=== PATIENT | male | born 1950 | race Caucasian/White ===

== ENCOUNTER 2016-11-24 07:16 | Day surgery (SDC) | payer MEDICARE, BC ==
[~2016-11-24 07:16] MED LIST: Albuterol/Ipratropium 3.0-0.5 MG/3 ML Neb Soln NEB PRN; Lactated Ringers 1,000 ML IV SCH; Lidocaine 1% 4 ML ONE; Lidocaine 1%/Sod Bicarbonate in NS 8.4% 1 ML Syringe PRN; Midazolam 1 MG/ML 2 ML SDV ONE; Propofol 200 MG/20 ML SDV ONE; Sodium Chloride 0.9% 10 ML Syringe FLUSH PRN; fentaNYL 100 MCG/2 ML SDV ONE
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
[2016-11-24] MEDS ORDERED: Propofol 200 MG/20 ML SDV ONE ×2 (09:23→10:04)
--- NOTE | 2016-11-24 10:00 | PCM.OPNOTE ---
- General Post-Op/Procedure Note Date of Surgery/Procedure: 11/24/16 Operative Procedure(s): colonoscopy to cecum polypectomy times three Findings: diverticulosis and polyps times three d Pre Op Diagnosis: screening colonoscopy Post-Op Diagnosis: Same Anesthesia Technique: MAC Primary Surgeon: Rojas Montejo EBL in mLs: 0 Complications: None Condition: Good
--- NOTE | 2016-11-24 10:04 | PCM48HPAN ---
Post Anesthesia Note - EVALUATION WITHIN 48HRS OF ANESTHETIC Vital Signs in Normal Range: Yes Patient Participated in Evaluation: Yes Respiratory Function Stable: Yes Airway Patent: Yes Cardiovascular Function Stable: Yes Hydration Status Stable: Yes Pain Control Satisfactory: Yes Nausea and Vomiting Control Satisfactory: Yes Mental Status Recovered: Yes
[2016-11-24 11:34] VITALS: BP 148/70
--- NOTE | 2016-11-25 08:34 | OR ---
DATE OF OPERATION: 11/24/2016 SURGEON: Rojas Montejo MD PREOPERATIVE DIAGNOSIS: Screening colonoscopy POSTOPERATIVE DIAGNOSIS: Screening colonoscopy. OPERATION PERFORMED: Colonoscopy of cecum with removal of polyps x3. FINDINGS: Sigmoid diverticulosis and a diminutive polyp in the ascending and sigmoid colon, and a flat villous-like polyp in the anterior rectum 7 cm from the anal verge measuring about 2 cm in diameter. ANESTHESIA: Done under IV sedation. DESCRIPTION OF PROCEDURE: The patient was taken to the operating room, placed in a supine position, connected to monitoring equipment, given IV sedation. The patient in the left lateral position, perianal area was inspected, showed some external hemorrhoids. Rectal exam showed good sphincter tone. A video Olympus colonoscope was introduced into the rectum and threaded up without problem to the cecum, where the ileocecal valve and appendicular orifice was noted. Prep was excellent. Hairfield cleansing score grade B and the scope was slowly withdrawn showing the cecum, ascending colon, transverse colon, descending colon, sigmoid colon, and rectum. Retroflexed view was done. Diminutive polyp was noted in the descending colon. This was removed by cautery snare and retrieved. A 2nd polyp was noted in the sigmoid colon. This was removed in the same way completely by cautery snare. A 3rd polyp was noted in the rectum on the anterior surface within 7 cm in the anal verge. This was handled by 1st injecting the base with saline and removing the polyp in a morselized technique. This was a very villous polyp. This was removed and the edges cauterized and a clip placed in 1 area. The various morsels were then aspirated and sent to Pathology as an aggregate. The patient tolerated the procedure, sent to recovery room in a stable condition and will be followed up in the clinic and we will withhold his Plavix until seen in the clinic. ESTIMATED BLOOD LOSS: MMODAL /[id number]
== END 2016-11-24 11:10 | disposition home or self-care (01) ==
LOC: JD.SDS 07:16
PROVIDERS: ATTEND Surgery
DX: Z12.11 Encounter for screening for malignant neoplasm of colon (principal); D12.4 Benign neoplasm of descending colon; D12.5 Benign neoplasm of sigmoid colon; D12.8 Benign neoplasm of rectum; K57.30 Diverticulosis of large intestine without perforation or abscess without bleeding; N40.0 Benign prostatic hyperplasia without lower urinary tract symptoms; I10 Essential (primary) hypertension; I73.9 Peripheral vascular disease, unspecified; E78.00 Pure hypercholesterolemia, unspecified; J44.9 Chronic obstructive pulmonary disease, unspecified; F17.210 Nicotine dependence, cigarettes, uncomplicated; Z85.46 Personal history of malignant neoplasm of prostate; Z90.79 Acquired absence of other genital organ(s); Z98.890 Other specified postprocedural states; Z79.02 Long term (current) use of antithrombotics/antiplatelets; Z79.82 Long term (current) use of aspirin; Z79.899 Other long term (current) drug therapy
CPT/HCPCS: 45385; 45388; J2250; J3010; J7120; 00810; 88305; J2704

== ENCOUNTER → 2017-08-20 | Day surgery (SDC) | payer MEDICARE, BC ==
[2017-08-20] MEDS: Polymyxin B/Trimethoprim 10 ML Bottle EYERT SCH ×4 (10:03→11:48)
[2017-08-20] MEDS: Brimonidine 0.2% Ophth Soln 5 ML Bottle EYERT SCH ×4 (10:11→11:48)
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
[2017-08-20] MEDS: Phenylephrine 2.5% Ophth Soln 2 ML Bot EYERT SCH ×6 (10:15→11:28)
[2017-08-20] MEDS: Tropicamide 1% Ophth Soln 3 ML Bottle EYERT SCH ×4 (10:20→11:04)
[2017-08-20] MEDS: Tetracaine HCl/PF 0.5% 4 ML Bottle EYERT SCH ×3 (10:45→11:35)
[2017-08-20] MEDS: Lidocaine 1% PF 2 ML SDV INJECT SCH ×2 (10:45→11:35)
[2017-08-20] MEDS: Cefuroxime 10 MG/ML SYRINGE EYERT SCH ×2 (10:45→11:45)
[2017-08-20] MEDS: Pilocarpine 4% Ophth Soln 15 ML Bot EYERT SCH ×2 (10:46→11:48)
--- NOTE | 2017-08-20 11:54 | PCM48HPAN ---
Post Anesthesia Note - EVALUATION WITHIN 48HRS OF ANESTHETIC Vital Signs in Normal Range: Yes Patient Participated in Evaluation: Yes Respiratory Function Stable: Yes Airway Patent: Yes Cardiovascular Function Stable: Yes Hydration Status Stable: Yes Pain Control Satisfactory: Yes Nausea and Vomiting Control Satisfactory: Yes Mental Status Recovered: Yes Pulse Rate: 57 SaO2: 99 Resp Rate: 16 Temperature: 37 C Blood Pressure: 100/59
[2017-08-20 11:59] VITALS: BP 115/51
== END | disposition home or self-care (01) ==
LOC: JD.SDS 07:00
PROVIDERS: ATTEND Ophthalmology
DX: H25.813 Combined forms of age-related cataract, bilateral (principal); H21.81 Floppy iris syndrome; H21.41 Pupillary membranes, right eye; I10 Essential (primary) hypertension; J44.9 Chronic obstructive pulmonary disease, unspecified; F17.200 Nicotine dependence, unspecified, uncomplicated; E78.00 Pure hypercholesterolemia, unspecified; H02.831 Dermatochalasis of right upper eyelid; H16.223 Keratoconjunctivitis sicca, not specified as Sjogren's, bilateral; H31.10 Unspecified choroidal degeneration; Z79.82 Long term (current) use of aspirin; Z79.899 Other long term (current) drug therapy
CPT/HCPCS: 66982; C1780; J0697; J2001; A9270-GY

== ENCOUNTER 2017-09-17 07:07 | Day surgery (SDC) | payer MEDICARE, BC ==
[2017-09-17] MEDS: Polymyxin B/Trimethoprim 10 ML Bottle EYELF SCH ×4 (07:20→09:25)
[2017-09-17] MEDS: Brimonidine 0.2% Ophth Soln 5 ML Bottle EYELF SCH ×4 (07:23→09:25)
[2017-09-17] MEDS: Phenylephrine 2.5% Ophth Soln 2 ML Bot EYELF SCH ×10 (07:29→08:46)
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
[2017-09-17] MEDS: Tropicamide 1% Ophth Soln 15 ML Bottle EYELF SCH ×4 (07:34→08:12)
[2017-09-17] MEDS: Lidocaine 1% PF 2 ML SDV INJECT SCH ×2 (08:19→08:52)
[2017-09-17] MEDS: Cefuroxime 10 MG/ML SYRINGE EYELF SCH ×2 (08:20→09:24)
[2017-09-17] MEDS: Pilocarpine 4% Ophth Soln 15 ML Bot EYELF SCH ×2 (08:21→09:25)
[2017-09-17] MEDS: Tetracaine HCl/PF 0.5% 4 ML Bottle EYELF SCH ×5 (08:23→08:52)
--- NOTE | 2017-09-17 09:26 | PCM48HPAN ---
Post Anesthesia Note - EVALUATION WITHIN 48HRS OF ANESTHETIC Vital Signs in Normal Range: Yes Patient Participated in Evaluation: Yes Respiratory Function Stable: Yes Airway Patent: Yes Cardiovascular Function Stable: Yes Hydration Status Stable: Yes Pain Control Satisfactory: Yes Nausea and Vomiting Control Satisfactory: Yes Mental Status Recovered: Yes Pulse Rate: 66 SaO2: 100 Resp Rate: 16 Temperature: 36.2 C Blood Pressure: 122/60
[2017-09-17 09:40] VITALS: BP 125/54
== END 2017-09-17 09:37 | disposition home or self-care (01) ==
LOC: JD.SDS 07:07
PROVIDERS: ATTEND Ophthalmology
DX: H25.812 Combined forms of age-related cataract, left eye (principal); H43.02 Vitreous prolapse, left eye; I10 Essential (primary) hypertension; J44.9 Chronic obstructive pulmonary disease, unspecified; F17.200 Nicotine dependence, unspecified, uncomplicated; E78.00 Pure hypercholesterolemia, unspecified; H02.831 Dermatochalasis of right upper eyelid; Z98.41 Cataract extraction status, right eye; Z79.82 Long term (current) use of aspirin; Z79.899 Other long term (current) drug therapy; Z96.1 Presence of intraocular lens
CPT/HCPCS: 66984; 67005; C1780; J0697; A9270-GY; J2001

== ENCOUNTER 2017-12-03 06:54 | Day surgery (SDC) | payer MEDICARE, BC ==
[~2017-12-03 06:54] MED LIST changes: -Albuterol/Ipratropium 3.0-0.5 MG/3 ML Neb Soln NEB PRN; -Lidocaine 1% 4 ML ONE; +Lidocaine 1%/Sod Bicarbonate in NS 8.4% 1 ML Syringe IDERM PRN; -Lidocaine 1%/Sod Bicarbonate in NS 8.4% 1 ML Syringe PRN; -Midazolam 1 MG/ML 2 ML SDV ONE; -Propofol 200 MG/20 ML SDV ONE; -fentaNYL 100 MCG/2 ML SDV ONE
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
[2017-12-03] MEDS ORDERED: Lidocaine 1% 4 ML ONE (07:59)
[2017-12-03] MEDS ORDERED: Propofol 200 MG/20 ML SDV ONE ×2 (07:59→08:25)
[2017-12-03] MEDS ORDERED: fentaNYL 100 MCG/2 ML SDV ONE (07:59)
--- NOTE | 2017-12-03 09:03 | PCM48HPAN ---
Post Anesthesia Note - EVALUATION WITHIN 48HRS OF ANESTHETIC Vital Signs in Normal Range: Yes Patient Participated in Evaluation: Yes Respiratory Function Stable: Yes Airway Patent: Yes Cardiovascular Function Stable: Yes Hydration Status Stable: Yes Pain Control Satisfactory: Yes Nausea and Vomiting Control Satisfactory: Yes Mental Status Recovered: Yes Pulse Rate: 61 Resp Rate: 18 Temperature: 36.3 C Blood Pressure: 121/52 - COMMENTS/OBSERVATIONS Free Text/Narrative:: no anesthesia complications noted
--- NOTE | 2017-12-03 09:13 | PCM.OPNOTE ---
- General Post-Op/Procedure Note Date of Surgery/Procedure: 12/03/17 Operative Procedure(s): colonoscopy to hepatic flexure with polypectomy Pre Op Diagnosis: hx of colonic polyps Post-Op Diagnosis: Same Anesthesia Technique: MAC Primary Surgeon: Rojas Montejo EBL in mLs: 0 Complications: None Condition: Good
[2017-12-03 09:54] VITALS: BP 132/85
--- NOTE | 2017-12-04 09:32 | OR ---
DATE OF OPERATION: 12/03/2017 SURGEON: Rojas Montejo MD PREOPERATIVE DIAGNOSIS: History of colonic polyps. POSTOPERATIVE DIAGNOSIS: History of colonic polyps. OPERATION PERFORMED: Colonoscopy, hepatic flexure, with removal of a polyp at the descending and sigmoid colon area, which was less than 1 cm, removed completely by cautery snare. FINDINGS: A subcentimeter polyp at the junction of the ascending colon and sigmoid colon and 2 moderate sigmoid diverticulosis. Large loop deformed and would not safely advance the scope beyond the hepatic flexure. Prep was excellent. [place] cleansing score grade A. Recommendation is followup colonoscopy as per pathology report. ANESTHESIA: Done under IV sedation. DESCRIPTION OF PROCEDURE: The patient was taken to the endoscopy room, connected to monitoring equipment, given IV sedation, and then placed in the left lateral position. Perianal area was unremarkable. Rectal exam showed good sphincter tone. A video Olympus colonoscope was then introduced into the rectum and threaded up to the hepatic flexure. Because of a loop, I was unable to advance further. Prep was excellent. [place] cleansing score grade A, and the scope was slowly withdrawn showing the polyp as described above, which was lassoed with cautery snare, removed, and retrieved. It was completely removed. The transverse colon, descending colon, sigmoid colon, and rectum were otherwise unremarkable beside diverticulosis and the polyp. The patient tolerated the procedure, sent to recovery room in a stable condition, will be followed up in the clinic, and the polyp sent to pathology in a labeled container. ESTIMATED BLOOD LOSS: MMODAL /[id number]
== END 2017-12-03 10:00 | disposition home or self-care (01) ==
LOC: JD.SDS 06:54 → MERGE 08:45 → JD.SDS 10:00
PROVIDERS: ATTEND Surgery
DX: Z12.11 Encounter for screening for malignant neoplasm of colon (principal); D12.4 Benign neoplasm of descending colon; I10 Essential (primary) hypertension; J44.9 Chronic obstructive pulmonary disease, unspecified; F17.210 Nicotine dependence, cigarettes, uncomplicated; K21.9 Gastro-esophageal reflux disease without esophagitis; I73.9 Peripheral vascular disease, unspecified; E78.00 Pure hypercholesterolemia, unspecified; Z86.010 Personal history of colon polyps; Z79.51 Long term (current) use of inhaled steroids; Z79.82 Long term (current) use of aspirin; Z79.899 Other long term (current) drug therapy
CPT/HCPCS: 45385; J2704; J3010; J7120; 00811; J2001

== ENCOUNTER 2018-05-10 08:41 | Emergency (ER) | payer MEDICARE, BC ==
[2018-05-10 08:50] VITALS: BP 150/72
[2018-05-10] MEDS ORDERED: Sodium Chloride 0.9% 10 ML Syringe FLUSH PRN (09:06)
--- NOTE | 2018-05-10 09:58 | CR ---
Chest: Portable view of the chest was obtained. Comparison: No prior chest x-ray, prior chest CT of 02/15/15. Findings: Heart size and mediastinum are normal. Lungs are clear but hyperinflated. Bony structures are grossly intact. Impression: 1. Emphysematous change. Nothing acute is seen. Diagnostic code #2
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
== END 2018-05-10 10:35 | disposition home or self-care (01) ==
LOC: JD.ED 08:41
DX: R07.89 Other chest pain (principal); E78.00 Pure hypercholesterolemia, unspecified; F17.210 Nicotine dependence, cigarettes, uncomplicated; Z79.899 Other long term (current) drug therapy
CPT/HCPCS: 36415; 71045; 71045-26; 80053; 84484; 85025; 93005; 93010; 99284; 99285-25

== ENCOUNTER 2018-05-23 14:59 | Emergency (ER) | payer MEDICARE, BC ==
[2018-05-23 15:14] VITALS: BP 126/109
[2018-05-23] MEDS ORDERED: Albuterol/Ipratropium 3.0-0.5 MG/3 ML Neb Soln NEB ONE (15:14)
[2018-05-23] MEDS ORDERED: Sodium Chloride 0.9% 1,000 ML IV ONE ×2 (15:32→17:14)
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
--- NOTE | 2018-05-23 16:57 | US ---
Limited abdominal ultrasound: Multiple real-time images were obtained of the abdomen within the right upper quadrant. Liver shows no focal abnormality. Gallbladder contains no calcified gallstones. Pancreas is within normal limits. Right kidney shows no hydronephrosis or mass. Inferior vena cava is patent. Portal vein shows normal hepatopedal flow. Impression: 1. No abnormality is seen on right upper quadrant abdominal ultrasound. Diagnostic code #1
--- NOTE | 2018-05-24 06:32 | CR ---
Chest: Portable view of the chest was obtained. Comparison: Prior chest x-ray of 05/10/18. Heart size and mediastinum are within normal limits for age. Lungs are clear but hyperinflated. Bony structures are grossly intact. Nodule is noted within the right mid to lower lung compatible with nipple density. Impression: 1. Emphysematous change. Nothing acute is seen on frontal chest x-ray. Diagnostic code #2
== END 2018-05-23 18:34 | disposition home or self-care (01) ==
LOC: JD.ED 14:59
DX: R07.89 Other chest pain (principal); B02.8 Zoster with other complications; E86.0 Dehydration; N28.9 Disorder of kidney and ureter, unspecified; E78.00 Pure hypercholesterolemia, unspecified; I10 Essential (primary) hypertension; F17.210 Nicotine dependence, cigarettes, uncomplicated; Z79.82 Long term (current) use of aspirin; Z95.5 Presence of coronary angioplasty implant and graft; Z79.899 Other long term (current) drug therapy
CPT/HCPCS: 36415; 71045; 76705; 80053; 83690; 84484; 85025; 85379; 93005; 94640; 96360; 96361; 99285; J7040; 93010; J7620-GY

== ENCOUNTER → 2020-03-22 | Day surgery (SDC) | payer MEDICARE, BC ==
[~2020-03-22] MED LIST changes: -Lactated Ringers 1,000 ML IV SCH; -Lidocaine 1%/Sod Bicarbonate in NS 8.4% 1 ML Syringe IDERM PRN; +Phenylephrine 2.5% Ophth Soln 15 ML Bot EYERT SCH; -Sodium Chloride 0.9% 10 ML Syringe FLUSH PRN; +Tropicamide 1% Ophth Soln 15 ML Bottle EYERT SCH
[2020-03-22] MEDS: Brimonidine 0.2% Ophth Soln 5 ML Bottle EYERT SCH ×2 (11:54→12:44)
[2020-03-22 12:50] VITALS: BP 138/66; PULSE 76
== END ==
LOC: JD.SDS 11:46
PROVIDERS: ATTEND Ophthalmology
DX: H26.491 Other secondary cataract, right eye (principal); H40.053 Ocular hypertension, bilateral; H35.363 Drusen (degenerative) of macula, bilateral; H35.3131 Nonexudative age-related macular degeneration, bilateral, early dry stage; H35.373 Puckering of macula, bilateral; Z79.899 Other long term (current) drug therapy; F17.200 Nicotine dependence, unspecified, uncomplicated; E78.00 Pure hypercholesterolemia, unspecified; I10 Essential (primary) hypertension; Z96.1 Presence of intraocular lens

== ENCOUNTER 2020-06-13 06:54 | Day surgery (SDC) | payer MEDICARE, BC ==
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
[~2020-06-13 06:54] MED LIST changes: +Albuterol 0.083% 2.5 MG/3 ML Neb Soln NEB PRN; +Lactated Ringers 1,000 ML IV SCH; +Lidocaine 1%/Sod Bicarbonate in NS 8.4% 1 ML Syringe IDERM PRN; -Phenylephrine 2.5% Ophth Soln 15 ML Bot EYERT SCH; +Sodium Chloride 0.9% 10 ML Syringe FLUSH PRN; -Tropicamide 1% Ophth Soln 15 ML Bottle EYERT SCH
[2020-06-13] MEDS ORDERED: fentaNYL 100 MCG/2 ML SDV ONE (06:56)
[2020-06-13] MEDS ORDERED: Propofol 200 MG/20 ML SDV ONE (06:56)
[2020-06-13] MEDS ORDERED: Lidocaine 1% 4 ML ONE (06:56)
--- NOTE | 2020-06-13 08:42 | PCM48HPAN ---
Post Anesthesia Note - EVALUATION WITHIN 48HRS OF ANESTHETIC Vital Signs in Normal Range: Yes Patient Participated in Evaluation: Yes Respiratory Function Stable: Yes Airway Patent: Yes Cardiovascular Function Stable: Yes Hydration Status Stable: Yes Pain Control Satisfactory: Yes Nausea and Vomiting Control Satisfactory: Yes Mental Status Recovered: Yes Vital Signs: Last Vital Signs Temp Pulse Resp BP Pulse Ox 98 06/13/20 07:35
--- NOTE | 2020-06-13 08:44 | PCM.OPNOTE ---
- General Post-Op/Procedure Note Date of Surgery/Procedure: 06/13/20 Operative Procedure(s): EGD Findings: 1. Esophagitis 2. Hiatal hernia 3. Irregular GE junction 4. Gastritis 5. Duodenitis 6. Duodenal polyps Pre Op Diagnosis: Dysphagia Post-Op Diagnosis: same Anesthesia Technique: MAC Primary Surgeon: Vera Romero Anesthesia Provider: Yoana Sanderson Pathology: 1. Upper esophageal biopsies 2. GE junction biopsies 3. Gastric antrum 4. Duodenal biopsies Fluid Replacement, Intraop: 300 Output, Urine Amount: 0 EBL in mLs: 0 Complications: none apparent Condition: Good
--- NOTE | 2020-06-13 08:46 | PCM.PRNOTE ---
- Free Text/Narrative Note: Operative Report Date of procedure: June 13, 2020 Preoperative diagnosis: Dysphagia Postoperative diagnosis: Same Surgeon: Vera Romero M.D. Procedure: EGD Anesthesia: MAC Chuck Tender: Yoana Sanderson CRNA IV fluids: 300mL Estimated blood loss: 0 mL Findings: 1. Esophagitis 2. Hiatal hernia 3. Irregular GE junction 4. Gastritis 5. Duodenitis 6. Duodenal polyps Specimens: 1. Upper esophageal biopsies 2. GE junction biopsies 3. Gastric antrum 4. Duodenal biopsies Indication: The patient is a 70 -year-old gentleman who presented with complaints of dysphagia and neck tenderness. He underwent a preprocedure CT scan of the head and neck as well as an esophagram. Findings there showed glot tic thickening as well as prominence of the cricopharyngeal muscle.. The patient was consented for an EGD. Risk of bleeding and perforation were discussed. The patient's consent was obtained. Description of the procedure: The patient was taken to the endoscopy suite and placed on hemodynamic monitoring. The nurse hoop expander induced MAC anesthesia. A bite block was placed. The patient was positioned in the left lateral decubitus position. A timeout was performed. The endoscope was gently placed into the mouth to the back of the pharynx and introduced into the esophagus. The scope was gently advanced under direct visualization down to the level of the lower esophageal sphincter. The stomach was then entered. Normal rugal folds were noted. There were findings of edema and adherent blood in the distal stomach and antrum consistent with gastritis. The scope was advanced into the antrum; the pylorus was then entered and the first and second portion of the duodenum was inspected. We did note some inflammation and flattened villi consistent with duodenitis. Biopsies were taken with a cold biopsy forceps. There were also polyps noted in the proximal duodenal bulb consistent with peptic duodenitis. Biopsies were taken of this polypoid tissue using a cold biopsy forceps. The scope was withdrawn to the antrum and biopsies taken in this area using cold biopsy forceps for histology and H. pylori testing. The scope was then retroflexed in the cardia and fundus were investigated. There was evidence of a small sliding hiatal hernia. The GE junction was irregular and biopsies were taken in 4 quadrants using a cold biopsy forceps. The scope was then withdrawn and inspecting the esophagus during withdrawal. At approximately 20 cm in the upper esophagus there was adherent slough consistent with fibrinous exudate. This was dislodged using a biopsy forceps, but the underlying mucosa appeared roughened and abnormal. Biopsies were taken of this patch using a cold biopsy forceps. No other abnormalities were noted. The procedure was terminated. The patient tolerated the procedure well without any evidence of complications. Vera Romero MD General Surgery
[2020-06-13 09:26] VITALS: BP 150/65; PULSE 68
== END 2020-06-13 09:24 | disposition home or self-care (01) ==
LOC: JD.SDS 06:54
PROVIDERS: ATTEND Surgery
DX: K20.90 Esophagitis, unspecified without bleeding (principal); K44.9 Diaphragmatic hernia without obstruction or gangrene; J44.9 Chronic obstructive pulmonary disease, unspecified; E78.00 Pure hypercholesterolemia, unspecified; I10 Essential (primary) hypertension; F17.210 Nicotine dependence, cigarettes, uncomplicated; Z79.82 Long term (current) use of aspirin; Z79.899 Other long term (current) drug therapy; Z85.46 Personal history of malignant neoplasm of prostate; Z86.010 Personal history of colon polyps
CPT/HCPCS: 43239; 88305; 94640; J2704; J3010; J7120; 00731; 99100

== ENCOUNTER 2021-01-02 07:54 | Day surgery (SDC) | payer MEDICARE, BC ==
[~2021-01-02 07:54] MED LIST changes: -Albuterol 0.083% 2.5 MG/3 ML Neb Soln NEB PRN
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
[2021-01-02] MEDS ORDERED: fentaNYL 100 MCG/2 ML SDV ONE (10:23)
[2021-01-02] MEDS ORDERED: Propofol 200 MG/20 ML SDV ONE ×3 (10:23→10:58)
[2021-01-02] MEDS ORDERED: Lidocaine 1% 4 ML ONE (10:24)
--- NOTE | 2021-01-02 11:30 | PCM48HPAN ---
Post Anesthesia Note - EVALUATION WITHIN 48HRS OF ANESTHETIC Vital Signs in Normal Range: Yes Patient Participated in Evaluation: Yes Respiratory Function Stable: Yes Airway Patent: Yes Cardiovascular Function Stable: Yes Hydration Status Stable: Yes Pain Control Satisfactory: Yes Nausea and Vomiting Control Satisfactory: Yes Mental Status Recovered: Yes Vital Signs: Last Vital Signs Temp 36.6 C 01/02/21 08:00 Pulse 75 01/02/21 08:00 Resp 16 01/02/21 08:00 BP 136/62 01/02/21 08:00 Pulse Ox 100 01/02/21 08:00 - COMMENTS/OBSERVATIONS Free Text/Narrative:: no anesthesia complications noted
--- NOTE | 2021-01-02 11:31 | PCM.OPNOTE ---
- General Post-Op/Procedure Note Date of Surgery/Procedure: 01/02/21 Operative Procedure(s): colonoscopy Findings: 1. Diverticulosis 2. Colon polyps 3. Internal hemorrhoids Pre Op Diagnosis: history of colon polyps Post-Op Diagnosis: same Anesthesia Technique: HUMERA Primary Surgeon: Vera Romero Anesthesia Provider: Miles Edouard Pathology: 1. Sigmoid colon polyp (removed with hot snare) 2. Sigmoid colon polyps x3 3. Transverse colon polyps x2 4. Biopsy of splenic flexure 5. Descending colon polyp 6. Rectal polyps x5 Fluid Replacement, Intraop: 700 Output, Urine Amount: 0 EBL in mLs: 0 Complications: none apparent Condition: Good
--- NOTE | 2021-01-02 11:34 | PCM.PRNOTE ---
- Free Text/Narrative Note: Operative Report Date of Surgery/Procedure: January 02, 2021 Operative Procedure: Colonoscopy to cecum with biopsy and polypectomy Pre Op Diagnosis: history of colon polyp Post-Op Diagnosis: same Surgeon: Vera Romero Anesthesia Technique: MAC Anesthesia Provider: Miles Edouard CRNA IV Fluid Replacement, Intraop: 700cc Output, Urine Amount: 0cc EBL : 0cc Findings: 1. Diverticulosis 2. Colon polyps 3. Internal hemorrhoids Specimens: 1. Sigmoid colon polyp (removed with hot snare) 2. Sigmoid colon polyps x3 3. Transverse colon polyps x2 4. Biopsy of splenic flexure 5. Descending colon polyp 6. Rectal polyps x5 Indication: The patient is a 70 year-old gentleman who presented to the outpatient clinic requesting colorectal cancer surveillance. The patient has a history of colon polyps. We discussed the procedure of a screening colonoscopy including the polypectomy and biopsy. Risks of bleeding and perforation were discussed, the patient understood and wished to proceed. Written and consent was obtained. Description of the procedure: The patient was brought to the endoscopy suite and placed in the left lateral decubitus position. Appropriate monitors were applied. The patient was given MAC anesthesia. An anorectal examination was performed, revealing no external abnormality The scope was placed into the rectum and advanced to cecum with moderate difficulty requiring abdominal pressure and change in position to supine. The patients cecum was entered, and the ileocecal valve and appendiceal orifice were identified and normal. At this point, the scope was withdrawn, paying careful attention to the mucosa. The patient had good bowel prep, allowing for visualization of 95% of the mucosa. Two flat 2-3mm transverse colon polyps were noted and removed with a jumbo cold biopsy forceps. There was some abnormal tissue noted in the splenic flexure and was biopsied with a jumbo cold biopsy forceps. A descending colon flat polyp 3mm and removed with a jumbo cold biopsy forceps. A 4mm semipedunculated polyp was removed with a hot snare from the sigmoid colon. A 5mm flat polyp and two 3-4mm flat polyps were removed from the sigmoid colon with a jumbo cold biopsy forceps. In the rectum, 5 polyps ranging from 3-5 mm that were flat and semi-pedunculated were removed with a jumbo cold biopsy forceps. Scattered small and large diverticula were seen in the descending and sigmoid colon. In the rectum, the scope was retroflexed and no abnormalities were noted, except for some more prominent internal hemorrhoidal tissue. The scope was placed back in the lumen and the excess air was aspirated. The patient tolerated the procedure well. Complications: none apparent Condition: Good, transported to PACU in stable condition Vera Romero MD General Surgery
[2021-01-02 12:08] VITALS: BP 139/60; PULSE 70
== END 2021-01-02 12:25 | disposition home or self-care (01) ==
LOC: JD.SDS 07:54
PROVIDERS: ATTEND Surgery
DX: D12.4 Benign neoplasm of descending colon (principal); D12.5 Benign neoplasm of sigmoid colon; D12.8 Benign neoplasm of rectum; K57.30 Diverticulosis of large intestine without perforation or abscess without bleeding; K64.8 Other hemorrhoids; K59.00 Constipation, unspecified; J44.9 Chronic obstructive pulmonary disease, unspecified; F17.210 Nicotine dependence, cigarettes, uncomplicated; Z79.82 Long term (current) use of aspirin
CPT/HCPCS: 45380; 45385; J2704; J3010; J7120; 00812; 88305; 99100

== ENCOUNTER 2021-06-22 09:01 | Emergency (ER) | payer OTHER, MEDICARE, BC ==
[2021-06-22] MEDS ORDERED: Lidocaine 1% 10 ML MDV INJECT ONE (09:06)
[2021-06-22 09:23] VITALS: PULSE 81
[2021-06-22 09:30] VITALS: BP 180/83
[2021-06-22] MEDS: Lidocaine 1% 10 ML MDV INJECT ONE ×2 (11:21→11:47)
== END 2021-06-22 12:10 | disposition home or self-care (01) ==
LOC: JD.ED 09:01
DX: S01.81XA Laceration without foreign body of other part of head, initial encounter (principal); S13.4XXA Sprain of ligaments of cervical spine, initial encounter; E78.00 Pure hypercholesterolemia, unspecified; I10 Essential (primary) hypertension; J44.9 Chronic obstructive pulmonary disease, unspecified; K21.9 Gastro-esophageal reflux disease without esophagitis; Z79.02 Long term (current) use of antithrombotics/antiplatelets; Z79.899 Other long term (current) drug therapy; V89.2XXA Person injured in unspecified motor-vehicle accident, traffic, initial encounter; Y92.410 Unspecified street and highway as the place of occurrence of the external cause
CPT/HCPCS: 12014; 70450; 70450-26; 70486; 70486-26; 71045; 71045-26; 72125; 72125-26; 99284; 99284-25

== ENCOUNTER 2021-08-22 09:27 | Day surgery (SDC) | payer MEDICARE, BC ==
[~2021-08-22 09:27] MED LIST changes: +Cefuroxime 10 MG/ML SYRINGE EYELF SCH; -Lactated Ringers 1,000 ML IV SCH; +Lidocaine 1% PF 2 ML SDV INJECT SCH; -Lidocaine 1%/Sod Bicarbonate in NS 8.4% 1 ML Syringe IDERM PRN; +Pilocarpine 4% Ophth Soln 15 ML Bot EYELF SCH; -Sodium Chloride 0.9% 10 ML Syringe FLUSH PRN
[2021-08-22] MEDS: Polymyxin B/Trimethoprim 10 ML Bottle EYELF SCH ×3 (10:04→11:33)
[2021-08-22] MEDS: Brimonidine 0.2% Ophth Soln 5 ML Bottle EYELF SCH ×3 (10:08→11:33)
[2021-08-22] MEDS: Phenylephrine 2.5% Ophth Soln 2 ML Bot EYELF SCH ×5 (10:11→11:20)
[2021-08-22] MEDS: Tropicamide 1% Ophth Soln 15 ML Bottle EYELF SCH ×4 (10:18→10:49)
[2021-08-22] MEDS: Tetracaine HCl/PF 0.5% 4 ML Bottle EYEBOTH SCH ×4 (11:04→11:26)
[2021-08-22 11:49] VITALS: BP 129/68; PULSE 71
== END 2021-08-22 11:41 | disposition home or self-care (01) ==
LOC: JD.SDS 09:27
PROVIDERS: ATTEND Ophthalmology
DX: T85.22XA Displacement of intraocular lens, initial encounter (principal); H40.042 Steroid responder, left eye; H40.053 Ocular hypertension, bilateral; Z96.1 Presence of intraocular lens; H35.373 Puckering of macula, bilateral; H31.092 Other chorioretinal scars, left eye; H35.363 Drusen (degenerative) of macula, bilateral; H35.3131 Nonexudative age-related macular degeneration, bilateral, early dry stage; E78.00 Pure hypercholesterolemia, unspecified; I73.9 Peripheral vascular disease, unspecified; I10 Essential (primary) hypertension; F17.200 Nicotine dependence, unspecified, uncomplicated; Z79.899 Other long term (current) drug therapy; J44.9 Chronic obstructive pulmonary disease, unspecified; Z79.82 Long term (current) use of aspirin; Z79.51 Long term (current) use of inhaled steroids; Z95.820 Peripheral vascular angioplasty status with implants and grafts
CPT/HCPCS: 66825; J0697

== ENCOUNTER 2022-03-20 19:38 | Emergency (ER) | payer MEDICARE, BC ==
[2022-03-20 20:05] VITALS: BP 162/74; PULSE 78
== END 2022-03-20 22:30 | disposition home or self-care (01) ==
LOC: JD.ED 19:38
DX: S92.001A Unspecified fracture of right calcaneus, initial encounter for closed fracture (principal); S93.601A Unspecified sprain of right foot, initial encounter; E78.00 Pure hypercholesterolemia, unspecified; I10 Essential (primary) hypertension; J44.9 Chronic obstructive pulmonary disease, unspecified; K21.9 Gastro-esophageal reflux disease without esophagitis; F17.210 Nicotine dependence, cigarettes, uncomplicated; Z79.02 Long term (current) use of antithrombotics/antiplatelets; Z79.82 Long term (current) use of aspirin; Z79.899 Other long term (current) drug therapy; X50.1XXA Overexertion from prolonged static or awkward postures, initial encounter
CPT/HCPCS: 29515; 73610-26-RT; 73610-RT; 73630-26-RT; 73630-RT; 99283